=== PATIENT | male | born 1945 | race Caucasian/White ===

== ENCOUNTER 2017-08-07 05:26 | Day surgery (SDC) | payer BC ==
[2017-08-06 15:04] VITALS: BMI 24.4
[2017-08-07 12:13] VITALS: TEMP 97.5
[2017-08-07 13:27] VITALS: PULSE 60
[2017-08-07 14:03] VITALS: BP 151/78
== END 2017-08-07 13:55 | disposition home or self-care (01) ==
LOC: JASU-SURG 05:26
PROC: 0T5B8ZZ Destruction of Bladder, Via Natural or Artificial Opening Endoscopic (ICD-10-PCS; principal; 2017-08-07)
DX: D30.3 Benign neoplasm of bladder (principal); R31.9 Hematuria, unspecified
CPT/HCPCS: 87086; 88108; 88305-TC; 94760